=== PATIENT | female | born 1945 | race Caucasian/White ===

== ENCOUNTER 2016-12-08 06:33 | Inpatient (IN) | payer MEDICARE, OTHER ==
[~2016-12-08 06:33] MED LIST: ACETAMINOPHEN500 M5 PO; AUGMENTIN 500-1 EAC2 PO; AUGMENTIN 875-1 EAC2 PO; CLARITIN10 M6 PO; COUMADIN4 M1 PO; COUMADIN6 M1 PO; FLONASE ALLERG9.9 ML; LOPRESSOR50 M1 PO; LOVENOX40 MG/0.1 SC; METHYLPHENIDATE5 M2 PO; MICARDIS HCT 81 EAC1 PO; SYNTHROID50 MC1 PO; TUMS200 MG PO; VENLAFAXINE HCL75 M4 PO; VITAMIN C500 M3 PO; VITAMIN D32000 UNI3 PO
[2016-12-09 05:52] LABS: HCT-HEMATOCRIT 31.5 % (34.0-49.0); HGB-HEMOGLOBIN 10.2 gm/dl (12.0-15.5); IMMATURE GRANULOCYTES ABSOLUTE 0.04 tho/cmm (0-0.03); IMMATURE GRANULOCYTES PERCENT 0.3 % (0-0.3); LYMPH % 8.2 % (20-45); LYMPH ABSOLUTE COUNT 1.2 tho/cmm (0.8-4.5); MCHC MEAN CORPUSCULAR HGB CONC 32.4 % (32.0-36.0); MCV (MEAN CELL VOLUME) 83.3 fl (82.0-96.0); MEAN PLATELET VOLUME 8.8 cmc (9.4-12.4); MONO % 5.4 % (0-12); MONOCYTE ABSOLUTE COUNT 0.8 tho/cmm (0.0-1.2); NEUTROPHIL ABSOLUTE COUNT 12.9 tho/cmm (1.6-8.0); NEUTROPHIL-AUTOMATED 12.9 tho/cmm (1.6-8.0); NEUTROPHILS % 86.1 % (40-80); PLATELET COUNT 198 tho/cmm (150-450); RED BLOOD COUNT 3.78 mil/cmm (4.00-5.20); RED CELL DISTRIBUTION WIDTH 13.7 % (12.4-16.4)
[2016-12-09 05:54] LABS: INR 1.2 INR (0.9-1.1); PROTHROMBIN TIME 14.2 SECONDS (9.0-13.6)
[2016-12-10 04:46] LABS: INR 1.3 INR (0.9-1.1); PROTHROMBIN TIME 15.2 SECONDS (9.0-13.6)
[2016-12-10] MEDS ORDERED: OXYCODONE HCL5 M1 PO (11:43)
[2016-12-10] MEDS ORDERED: ULTRAM50 M1 PO (11:43)
== END 2016-12-10 13:00 | DRG 470 ==
LOC: SHSB 06:33 → ORE 09:47 → PACU 11:35 → 5EA 12:30
PROVIDERS: Hospitalist; ADMIT Orthopaedic Surgery Foot and Ankle Surgery
PROC: 0SRD0J9 Replacement of Left Knee Joint with Synthetic Substitute, Cemented, Open Approach (ICD-10-PCS; principal; 2016-12-08)
DX: M17.12 Unilateral primary osteoarthritis, left knee (principal); D68.51 Activated protein C resistance; D64.9 Anemia, unspecified; E03.9 Hypothyroidism, unspecified; E78.5 Hyperlipidemia, unspecified; F32.9 Major depressive disorder, single episode, unspecified; I10 Essential (primary) hypertension; K21.9 Gastro-esophageal reflux disease without esophagitis; K90.0 Celiac disease; M79.7 Fibromyalgia
CPT/HCPCS: C1713; C1776; J0171; J0690; J1650; J1885; J2270; J2795